=== PATIENT | female | born 1985 ===

== ENCOUNTER 2017-10-28 19:10 | Emergency (ER) | payer MEDICAID, OTHER, SELFPAY ==
[2017-10-28] MEDS ORDERED: ACETAMINOPHEN 325 MG TAB PO ×3 (20:00)
[2017-10-28] MEDS ORDERED: PENICILLIN V POTASSIUM 500 MG TAB PO ×3 (20:00)
== END 2017-10-28 20:59 | disposition home or self-care (01) ==
LOC: M ED 19:10
DX: J02.9 Acute pharyngitis, unspecified (principal); F17.200 Nicotine dependence, unspecified, uncomplicated
CPT/HCPCS: 99281